=== PATIENT | female | born 1985 | race Caucasian/White ===

== ENCOUNTER → 2017-01-23 | Outpatient (CLI) | payer BC ==
[~2017-01-23] MED LIST: BUSPAR 15MG TAB15 MG PO; DEPLIN PO; FETZIMA120 MG PO; LAMICTAL 100MG100 MG PO; MICROGESTIN 1/21 TAB PO; SYNTHROID0.1 MG/TAB PO; VITAMIN D 50,1.25 MG PO; XANAX0.5 M1 PO
== END ==
LOC: LAB 11:27
DX: R50.9 Fever, unspecified (principal); R51 Headache; R53.83 Other fatigue

== ENCOUNTER 2018-05-15 19:24 | Emergency (ER) | payer BC ==
[~2018-05-15] VITALS: Ht 162.6 cm; Wt 113.2 kg
[2018-05-15] MEDS ORDERED: SYNTHROID RP0.1 MG PO (19:31)
[2018-05-15] MEDS ORDERED: ADDERALL 10 MG10 MG PO (19:32)
[2018-05-15] MEDS ORDERED: MOBIC15 M1 PO (19:32)
[2018-05-15] MEDS ORDERED: KLONOPIN 1MG1 MG PO (19:33)
[2018-05-15] MEDS ORDERED: EFFEXOR XR150 M1 PO (19:33)
[2018-05-15] MEDS ORDERED: LOPRESSOR 550 MG/TAB PO (19:33)
[2018-05-15] MEDS ORDERED: PROTONIX TR40 M1 PO (19:34)
[2018-05-15] MEDS ORDERED: LAMICTAL 100MG100 MG PO (19:34)
[2018-05-15] MEDS ORDERED: BUSPIRONE HYDRO10 MG PO (19:35)
[2018-05-15 20:19] LABS: URINE APPEARANCE HAZY; URINE BILIRUBIN NEGATIVE (NEGATIVE); URINE BLOOD NEGATIVE (NEGATIVE); URINE COLOR YELLOW; URINE GLUCOSE NEGATIVE (NEGATIVE); URINE KETONE NEGATIVE (NEGATIVE); URINE NITRATE NEGATIVE (NEGATIVE); URINE PROTEIN(semi-quant) NEGATIVE (NEGATIVE); URINE UROBILINOGEN NORMAL (NORMAL)
[2018-05-15 20:20] LABS: URINE LEUKOCYTE ESTERASE TRACE (NEGATIVE)
[2018-05-15 21:15] VITALS: BP 137/86
== END 2018-05-15 21:15 | disposition home or self-care (01) ==
LOC: ED 19:24
PROVIDERS: Family Medicine
DX: M54.89 Other dorsalgia (principal); Z79.899 Other long term (current) drug therapy

== ENCOUNTER → 2018-05-18 | Outpatient (CLI) | payer BC ==
[2018-05-15 21:15] VITALS: BP 137/86
[~2018-05-18] MED LIST changes: +ADDERALL 10 MG10 MG PO; +BUSPIRONE HYDRO10 MG PO; +EFFEXOR XR150 M1 PO; +KLONOPIN 1MG1 MG PO; +LOPRESSOR 550 MG/TAB PO; +MOBIC15 M1 PO; +PROTONIX TR40 M1 PO; +SYNTHROID RP0.1 MG PO
[2018-05-18 11:11] LABS: EOS # 0.4 (0.04-0.40); HEMATOCRIT 40.1 % (37.0-47.0); HEMOGLOBIN 13.1 g/dL (12.5-16.0); LYMPH# 2.5 (1.50-4.00); MEAN CELL VOLUME 88 fl (78-100); MEAN CORPUSCULAR HEMOGLOBIN 29 pg (27-31); MEAN CORPUSCULAR HGB CONC 33 g/dL (33-37); MEAN PLATELET VOLUME 8.4 fl (7.4-10.4); MONO # 0.6 (0.20-0.80); PLATELET COUNT 391 K/mm3 (130-400); RED BLOOD COUNT 4.58 M/mm3 (4.10-5.30); RED CELL DISTRIBUTION WIDTH 13.1 % (11.5-14.5); WHITE BLOOD COUNT 8.6 K/mm3 (4.8-10.8)
[2018-05-18 11:51] LABS: ALBUMIN 4.3 g/dL (3.5-5.0); BUN/CREATININE RATIO 14.3 (6.0-26.0); CALCIUM 8.8 mg/dL (8.4-10.2); POTASSIUM 4.7 mmol/L (3.6-5.0); TOTAL BILIRUBIN 0.2 mg/dL (0.2-1.3); TOTAL PROTEIN 8.1 g/dL (6.3-8.2)
[2018-05-18 12:20] LABS: ERYTHROCYTE SEDIMENTATION RATE 20 mm/hr (0-20)
== END ==
LOC: LAB 10:58
PROVIDERS: Internal Medicine
DX: E03.9 Hypothyroidism, unspecified (principal); R20.2 Paresthesia of skin; F33.1 Major depressive disorder, recurrent, moderate

== ENCOUNTER → 2018-05-29 | Outpatient (CLI) | payer BC ==
[2018-05-15 21:15] VITALS: BP 137/86
== END ==
LOC: RAD 14:47
DX: M54.6 Pain in thoracic spine (principal); R20.2 Paresthesia of skin

== ENCOUNTER → 2018-07-16 | Outpatient (CLI) | payer BC ==
[2018-07-16 23:32] LABS: HOMOCYSTEINE SERUM OR PLASMA 4.6 umol/L (4.0-14.0)
[2018-07-17 00:36] LABS: FOLATE (FOLIC ACID) 12.1 ng/mL (7.0-31.4)
== END ==
LOC: LAB 11:28
PROVIDERS: Internal Medicine
DX: R20.2 Paresthesia of skin (principal); R53.83 Other fatigue; E53.8 Deficiency of other specified B group vitamins; K90.9 Intestinal malabsorption, unspecified

== ENCOUNTER → 2018-08-24 | Outpatient (CLI) | payer SELFPAY ==
[2018-08-24 14:48] LABS: ALBUMIN 4.3 g/dL (3.5-5.0); CALCIUM 8.8 mg/dL (8.4-10.2); EOS # 0.3 (0.04-0.40); EOS % 3.7 % (1.0-5.0); HEMATOCRIT 39.3 % (37.0-47.0); HEMOGLOBIN 13.2 g/dL (12.5-16.0); LYMPH# 2.5 (1.50-4.00); MEAN CELL VOLUME 87 fl (78-100); MEAN CORPUSCULAR HEMOGLOBIN 29 pg (27-31); MEAN CORPUSCULAR HGB CONC 34 g/dL (33-37); MEAN PLATELET VOLUME 8.8 fl (7.4-10.4); MONO # 0.7 (0.20-0.80); NEU # 4.7 (1.40-6.50); PLATELET COUNT 389 K/mm3 (130-400); RED BLOOD COUNT 4.54 M/mm3 (4.10-5.30); RED CELL DISTRIBUTION WIDTH 12.8 % (11.5-14.5); TOTAL BILIRUBIN 0.4 mg/dL (0.2-1.3); TOTAL PROTEIN 7.3 g/dL (6.3-8.2); WHITE BLOOD COUNT 8.2 K/mm3 (4.8-10.8)
[2018-08-24 15:26] LABS: URINE APPEARANCE HAZY; URINE BILIRUBIN NEGATIVE (NEGATIVE); URINE BLOOD NEGATIVE (NEGATIVE); URINE COLOR YELLOW; URINE GLUCOSE NEGATIVE (NEGATIVE); URINE KETONE NEGATIVE (NEGATIVE); URINE LEUKOCYTE ESTERASE NEGATIVE (NEGATIVE); URINE NITRATE NEGATIVE (NEGATIVE); URINE PROTEIN(semi-quant) NEGATIVE (NEGATIVE); URINE UROBILINOGEN NORMAL (NORMAL)
[2018-08-24 16:02] LABS: POTASSIUM 4.3 mmol/L (3.6-5.0)
== END ==
LOC: LAB 14:06
PROVIDERS: Nurse Practitioner Family
DX: R53.83 Other fatigue (principal); R50.9 Fever, unspecified; R32 Unspecified urinary incontinence

== ENCOUNTER → 2018-09-01 | Outpatient (CLI) | payer OTHER ==
[2018-09-01 11:14] LABS: URINE APPEARANCE CLOUDY; URINE BILIRUBIN NEGATIVE (NEGATIVE); URINE BLOOD NEGATIVE (NEGATIVE); URINE COLOR YELLOW; URINE GLUCOSE NEGATIVE (NEGATIVE); URINE KETONE NEGATIVE (NEGATIVE); URINE LEUKOCYTE ESTERASE 2+ (NEGATIVE); URINE NITRATE NEGATIVE (NEGATIVE); URINE PROTEIN(semi-quant) TRACE mg/dL (NEGATIVE); URINE UROBILINOGEN NORMAL (NORMAL); URINE WBC 16-30 /hpf (0-3)
[2018-09-01 11:15] LABS: URINE MUCUS PRESENT (NOT PRESENT)
== END ==
LOC: LAB 08:49
PROVIDERS: Internal Medicine
DX: R50.9 Fever, unspecified (principal); R10.2 Pelvic and perineal pain

== ENCOUNTER → 2018-09-02 | Outpatient (CLI) | payer OTHER ==
[2018-09-02 10:59] LABS: URINE APPEARANCE HAZY; URINE BILIRUBIN NEGATIVE (NEGATIVE); URINE BLOOD TRACE (NEGATIVE); URINE COLOR YELLOW; URINE GLUCOSE NEGATIVE (NEGATIVE); URINE KETONE NEGATIVE (NEGATIVE); URINE LEUKOCYTE ESTERASE NEGATIVE (NEGATIVE); URINE NITRATE NEGATIVE (NEGATIVE); URINE PROTEIN(semi-quant) TRACE mg/dL (NEGATIVE); URINE UROBILINOGEN NORMAL (NORMAL)
== END ==
LOC: LAB 10:11
PROVIDERS: Internal Medicine
DX: R50.9 Fever, unspecified (principal)

== ENCOUNTER → 2018-10-08 | Outpatient (CLI) | payer OTHER ==
[~2018-10-08] VITALS: Ht 162.6 cm; Wt 117.7 kg
[2018-10-08 18:12] VITALS: BP 174/119
== END ==
LOC: AMSURD 15:56 → LAB 15:56
DX: R06.02 Shortness of breath (principal); R00.2 Palpitations

== ENCOUNTER → 2018-11-09 | Outpatient (CLI) | payer OTHER ==
[2018-10-08 18:12] VITALS: BP 174/119
[2018-11-09 12:22] LABS: POTASSIUM 3.6 mmol/L (3.6-5.0)
== END ==
LOC: LAB 11:52
PROVIDERS: Internal Medicine
DX: I10 Essential (primary) hypertension (principal); E03.9 Hypothyroidism, unspecified

== ENCOUNTER → 2018-11-13 | Outpatient (CLI) | payer OTHER ==
[2018-10-08 18:12] VITALS: BP 174/119
== END ==
LOC: LAB 14:51
DX: E74.39 Other disorders of intestinal carbohydrate absorption (principal)

== ENCOUNTER → 2019-01-22 | Outpatient (CLI) | payer OTHER ==
[2018-10-08 18:12] VITALS: BP 174/119
[~2019-01-22] MED LIST changes: +ABILIFY5 MG PO; +CYCLOBENZAPRINE10 M1 PO; +HCTZ/TRIAMTEREN1 CA2 PO; +NORCO 325 MG-51 TA1 PO; +PREDNISONE20 M1 PO
== END ==
LOC: RAD 14:38
DX: M47.9 Spondylosis, unspecified (principal); M25.551 Pain in right hip; M54.5 Low back pain

== ENCOUNTER 2019-01-24 14:35 | Emergency (ER) | payer OTHER ==
[~2019-01-24] VITALS: Ht 160 cm; Wt 105.5 kg
[~2019-01-24 14:35] MED LIST changes: -ABILIFY5 MG PO; -CYCLOBENZAPRINE10 M1 PO; -HCTZ/TRIAMTEREN1 CA2 PO; -NORCO 325 MG-51 TA1 PO; -PREDNISONE20 M1 PO
[2019-01-24] MEDS ORDERED: HCTZ/TRIAMTEREN1 CA2 PO (14:48)
[2019-01-24] MEDS ORDERED: CYCLOBENZAPRINE10 M1 PO (14:49)
[2019-01-24] MEDS ORDERED: PREDNISONE20 M1 PO (14:49)
[2019-01-24] MEDS ORDERED: ABILIFY5 MG PO (14:50)
[2019-01-24] MEDS ORDERED: NORCO 325 MG-51 TA1 PO (15:27)
[2019-01-24 15:47] VITALS: BP 135/89
== END 2019-01-24 15:46 | disposition home or self-care (01) ==
LOC: ED 14:35
DX: M54.41 Lumbago with sciatica, right side (principal); F90.9 Attention-deficit hyperactivity disorder, unspecified type; F41.9 Anxiety disorder, unspecified; Z90.49 Acquired absence of other specified parts of digestive tract; Z98.890 Other specified postprocedural states
CPT/HCPCS: J1885

== ENCOUNTER → 2019-02-12 | Outpatient (CLI) | payer OTHER ==
[2019-01-24 15:47] VITALS: BP 135/89
[~2019-02-12] MED LIST changes: +ABILIFY5 MG PO; +CYCLOBENZAPRINE10 M1 PO; +HCTZ/TRIAMTEREN1 CA2 PO; +NORCO 325 MG-51 TA1 PO; +PREDNISONE20 M1 PO
== END ==
LOC: RAD 11:59
DX: M25.551 Pain in right hip (principal)

== ENCOUNTER → 2019-02-15 | Outpatient (CLI) | payer OTHER ==
[2019-01-24 15:47] VITALS: BP 135/89
== END ==
LOC: RAD 15:30
DX: M25.551 Pain in right hip (principal); M89.351 Hypertrophy of bone, right femur

== ENCOUNTER 2019-02-26 09:30 | Outpatient (RCR) | payer OTHER | END 2019-02-26 10:00 | LOC: PT 09:30 | DX: M70.61 Trochanteric bursitis, right hip (principal); M76.30 Iliotibial band syndrome, unspecified leg; M76.891 Other specified enthesopathies of right lower limb, excluding foot ==

== ENCOUNTER → 2019-06-09 | Outpatient (CLI) | payer OTHER | LOC: LAB 11:34 | DX: M30.3 Mucocutaneous lymph node syndrome [Kawasaki] (principal) ==

== ENCOUNTER 2019-07-05 18:50 | Emergency (ER) | payer OTHER ==
[~2019-07-05 18:50] MED LIST changes: +BLISOVI FE 1.51 EACH PO; +LAMOTRIGINE150 MG PO; +METOPROLOL SUCC25 M1 PO; +VENLAFAXINE HCL75 M3 PO; +VENLAFAXINE HY150 MG PO
[2019-07-05 19:59] LABS: EOS # 0.5 (0.04-0.40); HEMOGLOBIN 13.5 g/dL (12.5-16.0); LYMPH# 3.1 (1.50-4.00); MEAN CELL VOLUME 82 fl (78-100); MEAN CORPUSCULAR HEMOGLOBIN 27 pg (27-31); MEAN CORPUSCULAR HGB CONC 33 g/dL (33-37); MEAN PLATELET VOLUME 8.2 fl (7.4-10.4); MONO # 0.7 (0.20-0.80); NEU # 7.5 (1.40-6.50); PLATELET COUNT 442 K/mm3 (130-400); RED BLOOD COUNT 4.99 M/mm3 (4.10-5.30); RED CELL DISTRIBUTION WIDTH 13.4 % (11.5-14.5); WHITE BLOOD COUNT 11.8 K/mm3 (4.8-10.8)
[2019-07-05 20:18] LABS: ALBUMIN 4.2 g/dL (3.5-5.0)
[2019-07-05 20:19] LABS: POTASSIUM 3.7 mmol/L (3.5-5.1)
[2019-07-05 20:20] LABS: CALCIUM 9.4 mg/dL (8.3-10.5)
[2019-07-05 20:21] LABS: TOTAL PROTEIN 7.8 g/dL (6.4-8.3)
[2019-07-05 20:23] LABS: TOTAL BILIRUBIN 0.2 mg/dL (0.2-1.2)
[2019-07-05 20:28] LABS: PARTIAL THROMBOPLASTIN TIME 22.5 SECONDS (21.0-32.0); PROTHROMBIN TIME 9.6 SECONDS (9.0-12.0)
[2019-07-05 20:32] LABS: D-DIMER 0.16 mg/L FEU (0.15-0.50)
[2019-07-05 20:39] LABS: URINE APPEARANCE HAZY; URINE BILIRUBIN NEGATIVE (NEGATIVE); URINE COLOR YELLOW; URINE GLUCOSE NEGATIVE (NEGATIVE); URINE KETONE NEGATIVE (NEGATIVE); URINE NITRATE NEGATIVE (NEGATIVE); URINE PROTEIN(semi-quant) NEGATIVE (NEGATIVE); URINE UROBILINOGEN NORMAL (NORMAL)
[2019-07-05 20:40] LABS: URINE BLOOD NEGATIVE (NEGATIVE); URINE LEUKOCYTE ESTERASE TRACE (NEGATIVE)
[2019-07-05] MEDS ORDERED: LEVAQUIN 750MG750 M1 PO (21:34)
[2019-07-05 21:42] VITALS: BP 146/90
== END 2019-07-05 21:42 | disposition home or self-care (01) ==
LOC: ED 18:50
PROVIDERS: Nurse Practitioner
DX: J22 Unspecified acute lower respiratory infection (principal); N39.0 Urinary tract infection, site not specified; R53.81 Other malaise; I10 Essential (primary) hypertension; F32.9 Major depressive disorder, single episode, unspecified; M30.3 Mucocutaneous lymph node syndrome [Kawasaki]; Z90.89 Acquired absence of other organs; Z98.890 Other specified postprocedural states
CPT/HCPCS: J7030

== ENCOUNTER → 2019-07-09 09:30 | Outpatient (RCR) | payer OTHER ==
[2019-06-28 16:21] VITALS: BP 148/86
[~2019-07-09 09:30] MED LIST changes: +LEVAQUIN 750MG750 M1 PO
== END | disposition home or self-care (01) ==
LOC: PT 07-02 11:00
DX: M25.551 Pain in right hip (principal); Z96.641 Presence of right artificial hip joint

== ENCOUNTER → 2019-07-10 | Outpatient (CLI) | payer OTHER ==
[2019-07-05 21:42] VITALS: BP 146/90
[2019-07-10 15:01] LABS: EOS # 0.4 (0.04-0.40); HEMATOCRIT 41.7 % (37.0-47.0); HEMOGLOBIN 13.5 g/dL (12.5-16.0); LYMPH# 2.8 (1.50-4.00); MEAN CELL VOLUME 82 fl (78-100); MEAN CORPUSCULAR HEMOGLOBIN 27 pg (27-31); MEAN CORPUSCULAR HGB CONC 32 g/dL (33-37); MEAN PLATELET VOLUME 8.1 fl (7.4-10.4); MONO # 0.7 (0.20-0.80); NEU # 7.8 (1.40-6.50); PLATELET COUNT 464 K/mm3 (130-400); RED CELL DISTRIBUTION WIDTH 13.6 % (11.5-14.5); WHITE BLOOD COUNT 11.8 K/mm3 (4.8-10.8)
[2019-07-10 15:15] LABS: ALBUMIN 4.3 g/dL (3.5-5.0); POTASSIUM 3.4 mmol/L (3.5-5.1)
[2019-07-10 15:16] LABS: CALCIUM 9.4 mg/dL (8.3-10.5)
[2019-07-10 15:17] LABS: TOTAL PROTEIN 8.2 g/dL (6.4-8.3)
[2019-07-10 15:19] LABS: TOTAL BILIRUBIN 0.3 mg/dL (0.2-1.2)
== END ==
LOC: LAB 14:22
PROVIDERS: Nurse Practitioner
DX: R53.81 Other malaise (principal)

== ENCOUNTER → 2019-07-15 | Outpatient (CLI) | payer OTHER ==
[2019-07-05 21:42] VITALS: BP 146/90
[2019-07-15 13:06] LABS: URINE APPEARANCE CLEAR; URINE BILIRUBIN NEGATIVE (NEGATIVE); URINE BLOOD NEGATIVE (NEGATIVE); URINE COLOR YELLOW; URINE GLUCOSE NEGATIVE (NEGATIVE); URINE KETONE NEGATIVE (NEGATIVE); URINE LEUKOCYTE ESTERASE NEGATIVE (NEGATIVE); URINE NITRATE NEGATIVE (NEGATIVE); URINE PROTEIN(semi-quant) TRACE mg/dL (NEGATIVE); URINE UROBILINOGEN NORMAL (NORMAL)
== END ==
LOC: LAB 10:51 → RAD 10:51
PROVIDERS: Internal Medicine
DX: J32.9 Chronic sinusitis, unspecified (principal); R06.02 Shortness of breath
CPT/HCPCS: Q9967

== ENCOUNTER → 2019-07-30 | Outpatient (CLI) | payer OTHER ==
[2019-07-05 21:42] VITALS: BP 146/90
[2019-07-30 15:18] LABS: ALBUMIN 4.4 g/dL (3.5-5.0); EOS # 0.3 (0.04-0.40); HEMATOCRIT 42.6 % (37.0-47.0); HEMOGLOBIN 13.7 g/dL (12.5-16.0); LYMPH# 2.3 (1.50-4.00); MEAN CELL VOLUME 82 fl (78-100); MEAN CORPUSCULAR HEMOGLOBIN 26 pg (27-31); MEAN CORPUSCULAR HGB CONC 32 g/dL (33-37); MEAN PLATELET VOLUME 8.3 fl (7.4-10.4); MONO # 0.7 (0.20-0.80); NEU # 6.5 (1.40-6.50); PLATELET COUNT 487 K/mm3 (130-400); POTASSIUM 4.3 mmol/L (3.5-5.1); RED BLOOD COUNT 5.19 M/mm3 (4.10-5.30); RED CELL DISTRIBUTION WIDTH 13.8 % (11.5-14.5); WHITE BLOOD COUNT 9.8 K/mm3 (4.8-10.8)
[2019-07-30 15:19] LABS: CALCIUM 9.8 mg/dL (8.3-10.5)
[2019-07-30 15:23] LABS: TOTAL BILIRUBIN 0.3 mg/dL (0.2-1.2)
== END ==
LOC: LAB 14:58
PROVIDERS: Internal Medicine
DX: I10 Essential (primary) hypertension (principal); E03.9 Hypothyroidism, unspecified; R73.02 Impaired glucose tolerance (oral); R53.81 Other malaise

== ENCOUNTER → 2019-09-16 | Outpatient (CLI) | payer OTHER ==
[2019-09-16 11:24] LABS: CLUE CELLS NOT OBSERVED (Not Observd)
== END ==
LOC: LAB 11:09
PROVIDERS: Nurse Practitioner
DX: N89.8 Other specified noninflammatory disorders of vagina (principal); R30.0 Dysuria
CPT/HCPCS: Q0111

== ENCOUNTER 2019-11-03 12:18 | Emergency (ER) | payer OTHER ==
[~2019-11-03 12:18] MED LIST changes: +ABILIFY2 MG PO; -ABILIFY5 MG PO; -BUSPIRONE HYDRO10 MG PO; +LAMICTAL150 MG PO; -LAMOTRIGINE150 MG PO
[2019-11-03] MEDS ORDERED: CYCLOBENZAPRINE10 M1 PO (12:49)
[2019-11-03] MEDS ORDERED: METOPROLOL SUCC25 M1 PO (12:50)
[2019-11-03] MEDS ORDERED: BLISOVI FE 1.51 EACH PO (12:53)
[2019-11-03] MEDS ORDERED: PREDNISONE20 M1 PO (13:30)
[2019-11-03] MEDS ORDERED: CEFDINIR300 MG PO (13:30)
[2019-11-03] MEDS ORDERED: TESSALON PERLE100 M1 PO (13:30)
[2019-11-03 14:14] VITALS: BP 147/99
== END 2019-11-03 14:14 | disposition home or self-care (01) ==
LOC: ED 12:18
DX: J40 Bronchitis, not specified as acute or chronic (principal); M94.0 Chondrocostal junction syndrome [Tietze]; I10 Essential (primary) hypertension; M30.3 Mucocutaneous lymph node syndrome [Kawasaki]
CPT/HCPCS: J1885

== ENCOUNTER → 2019-11-25 | Outpatient (CLI) | payer OTHER ==
[2019-11-03 14:14] VITALS: BP 147/99
[~2019-11-25] MED LIST changes: +CEFDINIR300 MG PO; +TESSALON PERLE100 M1 PO
[2019-11-25 11:32] LABS: EOS # 0.4 (0.04-0.40); EOS % 5.3 % (1.0-5.0); HEMATOCRIT 42.2 % (37.0-47.0); HEMOGLOBIN 13.6 g/dL (12.5-16.0); LYMPH# 2.3 (1.50-4.00); MEAN CELL VOLUME 82 fl (78-100); MEAN CORPUSCULAR HEMOGLOBIN 27 pg (27-31); MEAN CORPUSCULAR HGB CONC 32 g/dL (33-37); MEAN PLATELET VOLUME 8.2 fl (7.4-10.4); MONO # 0.6 (0.20-0.80); NEU # 4.9 (1.40-6.50); PLATELET COUNT 447 K/mm3 (130-400); RED BLOOD COUNT 5.13 M/mm3 (4.10-5.30); RED CELL DISTRIBUTION WIDTH 14.8 % (11.5-14.5); WHITE BLOOD COUNT 8.3 K/mm3 (4.8-10.8)
== END ==
LOC: LAB 11:12
PROVIDERS: Physician Assistant
DX: E03.9 Hypothyroidism, unspecified (principal)

== ENCOUNTER 2020-05-26 10:59 | Emergency (ER) | payer OTHER ==
[2020-05-26 11:38] LABS: EOS # 0.4 (0.04-0.40); EOS % 4.3 % (1.0-5.0); HEMATOCRIT 40.6 % (37.0-47.0); HEMOGLOBIN 13.1 g/dL (12.5-16.0); LYMPH# 2.2 (1.50-4.00); MEAN CELL VOLUME 84 fl (78-100); MEAN CORPUSCULAR HEMOGLOBIN 27 pg (27-31); MEAN CORPUSCULAR HGB CONC 32 g/dL (33-37); MEAN PLATELET VOLUME 8.1 fl (7.4-10.4); MONO # 0.5 (0.20-0.80); NEU # 6.2 (1.40-6.50); PLATELET COUNT 441 K/mm3 (130-400); RED BLOOD COUNT 4.84 M/mm3 (4.10-5.30); RED CELL DISTRIBUTION WIDTH 13.7 % (11.5-14.5); WHITE BLOOD COUNT 9.4 K/mm3 (4.8-10.8)
[2020-05-26 11:50] LABS: ALBUMIN 4.2 g/dL (3.5-5.0)
[2020-05-26 11:51] LABS: POTASSIUM 3.7 mmol/L (3.5-5.1)
[2020-05-26 11:52] LABS: CALCIUM 8.8 mg/dL (8.3-10.5)
[2020-05-26 11:53] LABS: TOTAL PROTEIN 7.6 g/dL (6.4-8.3)
[2020-05-26 11:55] LABS: TOTAL BILIRUBIN 0.2 mg/dL (0.2-1.2)
[2020-05-26] MEDS ORDERED: FIORICET 325 MG1 TAB PO ×2 (13:47→13:48)
[2020-05-26 13:49] VITALS: BP 147/86
== END 2020-05-26 13:56 | disposition home or self-care (01) ==
LOC: ED 10:59
PROVIDERS: Nurse Practitioner Primary Care
DX: G43.909 Migraine, unspecified, not intractable, without status migrainosus (principal); I10 Essential (primary) hypertension; F41.9 Anxiety disorder, unspecified; F32.9 Major depressive disorder, single episode, unspecified; K21.9 Gastro-esophageal reflux disease without esophagitis
CPT/HCPCS: J1200; J1885; J2360